=== PATIENT | male | born 1935 | race Caucasian/White ===

== ENCOUNTER 2018-10-19 23:25 | Observation (INO) ==
[2018-10-19] MEDS ORDERED: BENADRYL ONE (23:45)
[2018-10-19] MEDS ORDERED: PEPCID ONE (23:45)
[2018-10-19] MEDS ORDERED: SOLU-MEDROL ONE (23:45)
[2018-10-19] MEDS ORDERED: EPINEPHRINE SUBQ ONE (23:55)
[2018-10-19] MEDS ORDERED: SOLU-MEDROL IV ONE (23:58)
[2018-10-19] MEDS ORDERED: SODIUM CHLORIDE 0.9% INJ ONE (23:58)
[2018-10-19] MEDS ORDERED: PEPCID IV ONE (23:58)
[2018-10-19] MEDS ORDERED: BENADRYL IV ONE (23:58)
[2018-10-19] MEDS ORDERED: NS 1,000 ML IV ONE (23:59)
[2018-10-20] MEDS ORDERED: EPINEPHRINE IM ONE (00:13)
--- NOTE | 2018-10-20 01:54 | PROVIDER DOCUMENTATION ---
This chart was entered by Angie Arango Scribe, acting as scribe for Jolynn Roberson MD. HPI-EENT General - General Chief Complaint: Tongue Swelling Stated Complaint: TONGUE SWELLING Time Seen by Provider: 10/20/18 00:00 Source: patient Allergies/Adverse Reactions: Patient Allergies Allergy/AdvReac Type Severity Reaction Status Date / Time meperidine [From Demerol] Allergy NAUSEA Verified 09/06/18 21:43 - History of Present Illness-EENT General Nature of Presenting Problem: 82 y/o male presents to ED with tongue swelling and hoarseness onset 2 hours prior to arrival. Pt denies throat tightness, SOB, chest pain, N/V, or dizziness. Pt reports he took 1 steroid tablet from a prescription that he had filled 4 years ago without relief from his symptoms. Pt states he has hx of same 3 times in the past. Pt is alert and oriented. EENT Location: reports: other (tongue) Quality of Pain: reports: none Severity: reports: moderate Onset/Duration: reports: 1-3 hours ago Timing: reports: still present Prearrival Treatment: Initiated prescription meds (1 old steroid tablet) Associated Symptoms: reports: other (tongue swelling; hoarseness) Locality of Occurance: Home Similar Symptoms Previously?: Yes Recently seen or treated by another doctor?: No - Throat/Dental Throat/Dental Problem Symptoms: reports: other (tongue swelling; hoarseness) Throat/Dental Problem Context: reports: other (tongue swelling; hoarseness) Recently seen a dentist or have an appointment?: No Review of Systems - Adult - REVIEW OF SYSTEMS - ADULT Constitutional: denies: chills, fever Eyes: reports: no symptoms reported Ears, Nose, Mouth & Throat: reports: hoarseness, other (tongue swelling) Cardiovascular: denies: chest pain, palpitations Respiratory: denies: cough, shortness of breath Gastrointestinal: denies: abdominal pain, diarrhea, nausea, vomiting Genitourinary: reports: no symptoms reported Musculoskeletal: denies: back pain, joint pain Integumentary: reports: no symptoms reported Neurological: denies: dizziness/vertigo, seizure Psychiatric: reports: no symptoms reported Endocrine: reports: no symptoms reported Hematologic/Lymphatic: reports: no symptoms reported Allergic/Immunologic: reports: no symptoms reported All Other Systems: Reviewed and Negative Past History - Adult - PAST MEDICAL HISTORY-ADULT Review of Records: reports: Old Records Reviewed, Nursing Assessment Review, Medications Reviewed Major Childhood Illnesses: reports: denies history Cardiovascular: reports: A-Fib, HTN, hyperlipidemia Musculoskeletal: reports: arthritis (osteo) - PRIOR SURGERIES/PROCEDURES Surgical/Procedure History: reports: joint replacement (TKR; R shoulder) - IMMUNIZATION STATUS Childhood Immunizations: See Nurse Assessment Flu Vaccine: See Nurse Assessment - FAMILY HISTORY Family History: reviewed, not pertinent - SOCIAL HISTORY Smoking: non-smoker Substance Use: none/never Alcohol Use Frequency: never Living Situation: family Physical Exam- EENT - Physical Exam EENT Initial Vital Signs Reviewed: Yes General Appearance: alert, mild distress Eye Exam: bilateral eye: normal inspection, PERRL, EOMI Ear Exam: bilateral ear: auricle normal, canal normal, TM normal Nasal Exam: normal inspection Throat Exam: pharynx normal, tongue swollen, voice changes, other (No uvula or tonsil noted (all removed due to DENISA)). negative: pharynx swelling Neck: non-tender, full range of motion Respiratory: chest non-tender, lungs clear, normal breath sounds, no respiratory distress, no accessory muscle use. negative: accessory muscle use, crackles, rhonchi, stridor, wheezing Cardiovascular: normal peripheral pulses, regular rate, rhythm Abdominal Exam: normal bowel sounds, non tender, soft Back Exam: normal inspection, no CVA tenderness, no vertebral tenderness Extremity: normal range of motion, non-tender, normal gait Integumentary: normal color, warm/dry Neurologic: grossly normal Psych/Mental Status: normal thought content, normal thought process Progress - PLAN OF CARE/RESULTS Progress/Plan/Lab Results: Vital Signs - 8 hr 10/19/18 23:32 Temperature 98.8 F Pulse Rate 65 Respiratory Rate 20 Blood Pressure 143/72 O2 Sat by Pulse Oximetry 96 Orders Category Date Time Status 0.9% Sodium Chloride Inj [Ns] 1,000 ml Med 10/19/18 23:59 Discontinued IV 999 mls/hr Diphenhydramine [Benadryl] Med 10/19/18 23:45 Discontinued 50 mg .ROUTE .STK-MED ONE Diphenhydramine [Benadryl] Med 10/19/18 23:58 Discontinued 50 mg IV NOW ONE Epinephrine Med 10/20/18 00:13 Discontinued 0.3 mg IM NOW ONE Epinephrine Med 10/19/18 23:55 Discontinued 0.3 mg SUBQ NOW ONE Famotidine [Pepcid] Med 10/19/18 23:45 Discontinued 20 mg .ROUTE .STK-MED ONE Famotidine [Pepcid] Med 10/19/18 23:58 Discontinued 20 mg IV NOW ONE Methylprednisolone Sod Succ [Solu-Medrol] Med 10/19/18 23:45 Discontinued 125 mg .ROUTE .STK-MED ONE Methylprednisolone Sod Succ [Solu-Medrol] Med 10/19/18 23:58 Discontinued 125 mg IV NOW ONE Sodium Chloride 0.9% Med 10/19/18 23:58 Discontinued 5 - 10 ml INJ NOW ONE Pt care, assessment and plan discussed with the attending physician Dr. Minerva Valdivia and she agree with the plan as documented. Pt seen and examined by Dr. Valdivia. plan is to monitor pt closely since he is improving. - REASSESSMENT Reassessment #1 Time Reassessed: 00:15 Status: unchanged Reassessment #2 Time Reassessed: 00:39 Status: improving (decrease hoarseness of voice and tongue swelling) Reassessment #3 Time Reassessed: 01:10 Status: improving (less hoarsenss of voice) Reassessment #4 Time Reassessed: 01:40 Status: improving (pt much better. 80% improvement in voice per family. Tongue swelling improved alot. pt need observation inaptient.) - CONSULTS/PCP/HOSPITALIST Notification #1 *Consult/PCP/Hospitalist*: Dr. Hector Time Discussed: 01:51 Reason/Comments: Angioedema; tongue swelling Consult Disposition: Admit Departure - Departure Date of Disposition Decision: 10/20/18 Time of Disposition Decision: 01:50 DIAGNOSIS: Tongue swelling Angioedema Qualifiers: Encounter type: initial encounter Qualified Code(s): T78.3XXA - Angioneurotic edema, initial encounter Disposition: ADMITTED INPATIENT 09 Certified Medical Emergency: Emergent Condition: Stable Referrals and Follow-Ups: Kilo Vargas MD [Primary Care Provider] - - Critical Care Note This patient required my direct & personal management of CC.: No Attestation - Physician/ HELENA Attestation Patient care was provided by Advanced Practice Provider:: No The physician spent face to face time with patient:: Yes Advanced Practice Provider documentation review:: Supervising physician onsite and consulted in the evaluation and care of this patient. The physician did have a face to face encounter with the patient. This chart was documented by the indicated scribe, (Angie Arango, Francine) and accurately reflects the services I performed and decisions made by me, Jolynn Roberson MD, as attested by the provider's signature.
[2018-10-20] MEDS ORDERED: SOLU-MEDROL IV SCH (05:03)
[2018-10-20] MEDS ORDERED: BENADRYL IV PRN (05:03)
[2018-10-20] MEDS ORDERED: EPINEPHRINE SUBQ PRN (08:17)
[2018-10-20 09:47] LABS: HEMATOCRIT 43.8 % (42.0-52.0); HEMOGLOBIN 15.2 g/dL (14.0-18.0); IMM GRAN# 0.03 X1000 (0.0-0.04); IMM GRAN% 0.3 % (0.0-0.5); LYMPH# 1.76 X1000 (1.2-3.4); LYMPH% 18.2 % (20.5-51.1); MCH 33.5 PG (27-31); MCHC 34.7 g/dL (33-37); MCV 96.5 FL (81-99); MONO# 0.04 X1000 (0.11-0.59); MONO% 0.4 % (1.7-9.3); MPV 9.4 FL (7.4-10.4); NEUT# 7.85 X1000 (1.4-6.5); NEUT% 81.1 % (42.2-75.2); PLT 194 X1000 (130-400); RBC 4.54 XMIL (4.7-6.1); WBC 9.68 X1000 (4.8-10.8)
--- NOTE | 2018-10-20 09:59 | HISTORY AND PHYSICAL ---
PRIMARY CARE PHYSICIAN: Dr. Vargas. CHIEF COMPLAINT: Tongue swelling. HISTORY OF PRESENTING ILLNESS: 82-year-old male with a history of hypertension, hyperlipidemia, atrial fibrillation who was brought to the emergency department due to patient's tongue swelling. He states that it started earlier today and he had 2 prior episodes of this happening. He was evaluated in the Emergency Department. He was treated for possible allergic reaction and angioedema with methylprednisone and Benadryl. He states the swelling currently has improved somewhat. However, due to his presenting symptoms, we will place him for observation for further evaluation and management. At the time of my examination, he had denied any headache, fever, chills, chest pain, shortness of breath, hemoptysis, melena or any weight changes. PAST MEDICAL HISTORY: Includes hypertension, hyperlipidemia, atrial fibrillation. PAST SURGICAL HISTORY: Right shoulder, bilateral knee surgery, cholecystectomy, back surgery, uvuloplasty, tonsillectomy. ALLERGIES: Demerol and morphine. CURRENT MEDICATIONS: He does not recall and nursing staff will reconcile. SOCIAL HISTORY: No history of smoking, alcohol or illicit drug use. FAMILY HISTORY: Positive for coronary disease father. REVIEW OF SYSTEMS: Fourteen point review of system as listed in HPI. Other systems negative. PHYSICAL EXAMINATION: GENERAL: Cooperative, friendly male. He is resting comfortably now. VITAL SIGNS: Temperature 98.8 degrees, pulse 65, respirations 20, blood pressure 143/72. HEENT: Atraumatic, normocephalic. Extraocular movements intact. PERRLA. Tongue is swollen. NECK: No masses. CHEST: Clear to auscultation. CARDIOVASCULAR: Regular rate and rhythm. ABDOMEN: Soft positive bowel sounds. EXTREMITIES: No edema. NEUROLOGIC: He is awake, alert, oriented x3. : No bladder distention. SKIN: Warm. LABORATORIES AND STUDIES: Still pending. ASSESSMENT: 82-year-old male with a history of hypertension, hyperlipidemia, and atrial fibrillation, was brought to the emergency department due to his tongue swelling. He was treated for angioedema in the ED with Solu-Medrol and Benadryl. However due to his presenting symptoms, we will place him for observation for further evaluation and management. 1. Angioedema of the tongue. 2. Hypertension. 3. Hyperlipidemia. 4. Atrial fibrillation. PLAN: 1. We will admit patient to medical floor with telemetry. 2. We will continue with Solu-Medrol and Benadryl. 3. We will continue to monitor and continue supportive treatment. 4. Monitor blood pressure closely. 5. Restart other home medications. 6. Continue monitor him on telemetry. 7. Put patient on deep venous thrombosis prophylaxis with sequential compression devices. 8. We will continue to follow and reassess. Make further recommendation based on patient's clinical course. cc: MD Kilo Scott MD
[2018-10-20 10:00] LABS: AGAP 13; ALB/GLOB RATIO 1.8; ALBUMIN 4.4 g/dL (3.5-5.0); ALKALINE PHOSPHATASE 76 U/L (32-122); BUN 17 mg/dL (8-22); CALCIUM 9.1 mg/dL (8.8-10.2); CHLORIDE 101 mmol/L (98-107); COSMO 276; CREATININE 0.9 mg/dL (0.7-1.2); ESTIMATED GFR > 60; GLUCOSE 178 mg/dL (70-104); GOT 17 U/L (10-34); GPT 14 U/L (10-44); POTASSIUM 4.5 mmol/L (3.5-5.1); SODIUM 135 mmol/L (136-145); TCO2 21 mmol/L (25-35); TOTAL BILIRUBIN 0.42 mg/dL (0.20-1.00); TOTAL PROTEIN 6.8 g/dL (6.3-8.3)
[2018-10-20] MEDS: LANOXIN PO SCH (10:15)
[2018-10-20] MEDS: XARELTO PO SCH (10:15)
[2018-10-20] MEDS: PROTONIX PO SCH (10:15)
[2018-10-20] MEDS: LOPRESSOR PO SCH ×2 (10:15→21:03)
[2018-10-20] MEDS: PRAVACHOL PO SCH (10:15)
--- NOTE | 2018-10-20 20:08 | CARDIOLOGY CONSULTATION ---
DATE: 10/20/2018 CHIEF COMPLAINT: Swelling of the tongue. REASON FOR CONSULTATION: Possible side effect of essential cardiac medication. HISTORY: Mr. Mercer is an 82-year-old male who normally follows with Dr. Ian Lucio. He was seen the last time on 09/16/2018. Since that time, he has been doing well up until yesterday when he presented to the ER, at about very close to midnight, with sudden onset of swelling of his tongue. This had progressed in spite of the fact that he took Benadryl at home. He felt like it was starting to expand into the back of the tongue, and at that time he did notify his . In the ER, they diagnosed angioedema and he was given methylprednisolone and antihistamine, and has been admitted for observation. The patient denies having any cardiac symptoms like chest pain or shortness of breath or swelling, palpitations, syncope, etc. PAST HISTORY: 1. Persistent atrial fibrillation or permanent atrial fibrillation. 2. 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 3. Hypertension. 4. Hyperlipidemia. SURGICAL HISTORY: 1. Right shoulder surgery. 2. Bilateral knee replacement. 3. Cholecystectomy. 4. Back surgery. 5. UPPP. SOCIAL HISTORY: He is retired. He has been for 65 years. He has 2 grown up children. He retired from [employer]. Not a smoker or a drinker. FAMILY HISTORY: Noncontributory. ALLERGIES: Meperidine. HOME MEDICATIONS: Include: 1. Digoxin 0.125 daily. 2. Meloxicam 15 mg daily. 3. Metoprolol 50 twice a day. 4. [place]-3 fatty acids 360 daily. 5. Protonix 40 daily. 6. Pravastatin 20 daily. 7. Xarelto 20 daily. 8. Entresto 24 to 26 twice a day. 9. Spironolactone 12.5 daily. 10. Vitamin E 400 units daily. REVIEW OF SYSTEMS: According to Dr. Vargas, he has had 2 previous episodes of angioedema, one about 6 years ago and the other one about 4 years ago following a colonoscopy. The first one was more severe and that apparently was connected to taking JOE inhibitors. PHYSICAL EXAMINATION: Vital Signs: Blood pressure 144/66, temperature 95 degrees, pulse 87, respirations 16. General: He is awake, alert, oriented, in no distress. HEENT: Unremarkable. Chest: Clear to auscultation and percussion. Heart: Sounds irregularly irregular. Abdomen: Soft, nontender. No masses. No hepatomegaly. Extremities: No edema. Neurologic: Nonfocal. Moves all 4 extremities. IMPRESSION: 1. Patient who presents with angioedema. 2. Congestive heart failure, systolic, on appropriate therapy. 3. Hypertension. 4. Permanent atrial fibrillation, on long-term anticoagulation. 5. Prior angioedema, in connection with angiotensin converting enzyme inhibitor. RECOMMENDATIONS: At this point, from cardiology viewpoint, I would suggest to put on hold Entresto and perhaps run the case with an content management specialist to determine how this case can be sorted out. If he had definite intolerance to angiotensin converting enzyme inhibitors, then Entresto cannot be used. He may have to be treated only with combination of spironolactone, digoxin, and beta blockers. Perhaps angiotensin receptor blockers are less likely to cross-react with Entresto. At any rate, from the cardiac viewpoint, there is nothing else that I can advise, and you may discharge the patient at your earliest convenience. Thank you again for the opportunity to participate in his evaluation. cc: MD Kilo Barajas MD
[2018-10-21 07:32] VITALS: BP 143/67
[2018-10-21] MEDS: LOPRESSOR PO SCH (08:39)
[2018-10-21] MEDS: PRAVACHOL PO SCH (08:39)
[2018-10-21] MEDS: XARELTO PO SCH (08:39)
[2018-10-21] MEDS: PROTONIX PO SCH (08:39)
[2018-10-21] MEDS: LANOXIN PO SCH (08:40)
[2018-10-21] MEDS ORDERED: ALDACTONE PO SCH (09:00)
== END 2018-10-21 10:04 | disposition home or self-care (01) ==
LOC: ED 23:25 → 4N 23:25 → SUATTDRO 10-20 03:48
PROVIDERS: ADMIT Internal Medicine; ATTEND Internal Medicine
CPT/HCPCS: 80053; 85025; 85651; 86160; A9270; J0171; J1200; J2930; J7030; S0028